=== PATIENT | female | born 1975 | race Caucasian/White ===

== ENCOUNTER → 2017-12-07 15:51 | Outpatient (CLI) | payer BC, SELFPAY ==
--- NOTE | 2017-12-07 15:55 | HPBI_ITS ---
MAMMOGRAPHY - BILATERAL SCREENING REASON FOR EXAM: Female, 42 years old. Routine annual screening examination. PERTINENT HISTORY: Non-contributory. TECHNIQUE: Digital bilateral breast jenny (3D mammographic acquisition) in the CC and MLO projections. 2-D mediolateral oblique (MLO) and craniocaudad (CC) views of both breasts were obtained. CAD: Full Field Digital Mammography with Computer Added Detection was performed. COMPARISON: Comparison is made with prior study dated November 24, 2016 and July 30, 2015. FINDINGS: Breast Composition: The breasts are heterogeneously dense, which may obscure small masses. There are no dominant masses or suspicious calcifications. No other significant abnormalities are identified. There has been no significant change since the prior study. HPBI/SCREENING MAMM (CAD), BILAT IMPRESSION: Stable bilateral screening mammogram. Yearly follow-up mammogram recommended. (A) ASSESSMENT CATEGORY: BIRADS Category 1: Negative. A letter regarding these results will be sent to the patient by the facility within 30 days. Approximately 10% of breast cancers are not detected by mammography. A normal mammogram should not delay biopsy of a clinically suspicious abnormality. [id number] Electronically Signed: Shemar Pike MD at 7:56 EST Tel [phone], Service support ,
== END ==
PROVIDERS: Family Provider Family Medicine; PCP Family Medicine; Visit Provider Obstetrics & Gynecology
DX: Z12.31 Encounter for screening mammogram for malignant neoplasm of breast (principal)
CPT/HCPCS: 77063; 77067

== ENCOUNTER → 2018-12-27 14:41 | Outpatient (CLI) | payer BC, SELFPAY ==
--- NOTE | 2018-12-27 14:44 | BI_ITS ---
MAMMOGRAPHY - BILATERAL SCREENING 3-D PRANAV SYNTHESIS REASON FOR EXAM: Female, 43 years old. Bilateral Screening 3-D tomosynthesis PERTINENT HISTORY: No significant family history. TECHNIQUE: 2-D mammograms and 3-D Pranav synthesis of the breast (s) were performed. CAD was performed. COMPARISON: December 07, 2017, November 24, 2016 FINDINGS: The breast composition is heterogeneously dense that can obscure small breast masses. Scattered benign calcifications are seen. No dense spiculated masses or suspicious microcalcifications are identified. No architectural distortion is identified. There is no skin thickening or retraction. There has been no significant change since the prior study. BI/SCREENING MAMM (CAD), BILAT IMPRESSION: No mammographic signs of malignancy. Routine yearly mammograms recommended. ASSESSMENT CATEGORY: BIRADS Category 2: Benign. A letter regarding these results will be sent to the patient by the facility within 30 days. FOLLOW UP RECOMMENDATION: Yearly follow up mammogram recommended. (A) Approximately 10% of breast cancers are not detected by mammography. A normal mammogram should not delay biopsy of a clinically suspicious abnormality. Electronically Signed: Landon Reynolds MD at 13:53 EDT , Service support ,
== END ==
PROVIDERS: Family Provider Family Medicine; PCP Family Medicine; Referring Provider Obstetrics & Gynecology; Visit Provider Obstetrics & Gynecology
DX: Z12.31 Encounter for screening mammogram for malignant neoplasm of breast (principal)
CPT/HCPCS: 77063; 77067

== ENCOUNTER → 2020-08-29 12:40 | Outpatient (CLI) | payer BC, SELFPAY ==
--- NOTE | 2020-08-29 12:42 | BI_ITS ---
MAMMOGRAPHY - BILATERAL SCREENING REASON FOR EXAM: Female, 45 years old. Routine annual screening examination. PERTINENT HISTORY: Aunt with breast cancer. TECHNIQUE: Digital bilateral breast pranav (3D mammographic acquisition) in the CC and MLO projections. 2-D mediolateral oblique (MLO) and craniocaudad (CC) views of both breasts were obtained. CAD: Full Field Digital Mammography with Computer Added Detection was performed. COMPARISON: Comparison is made with prior study dated 12/27/2018 and 12/07/2017. FINDINGS: Breast Composition: The breasts are extremely dense, which lowers the sensitivity of mammography. There are no dominant masses or suspicious calcifications. No other significant abnormalities are identified. There has been no significant change since the prior study. BI/SCREEN MAMM (CAD) W/PRANAV BILAT IMPRESSION: Stable bilateral screening mammogram. Yearly follow-up mammogram recommended. (A) ASSESSMENT CATEGORY: BIRADS Category 1: Negative. A letter regarding these results will be sent to the patient by the facility within 30 days. Approximately 10% of breast cancers are not detected by mammography. A normal mammogram should not delay biopsy of a clinically suspicious abnormality. [id number] Electronically Signed: Shemar Pike, at 13:49 EST , Service support ,
== END ==
PROVIDERS: PCP Family Medicine; Referring Provider Student in an Organized Health Care Education/Training Program; Visit Provider Student in an Organized Health Care Education/Training Program
DX: Z12.31 Encounter for screening mammogram for malignant neoplasm of breast (principal)
CPT/HCPCS: 77063; 77067

== ENCOUNTER → 2020-09-25 | Outpatient (CLI) | payer BC, SELFPAY ==
[2020-09-27 18:22] LABS: HPV Reflexed? NOT INDICATED
== END | disposition home or self-care (01) ==
LOC: LABSPEC 13:20
PROVIDERS: PCP Family Medicine; Visit Provider Student in an Organized Health Care Education/Training Program
DX: Z12.4 Encounter for screening for malignant neoplasm of cervix (principal)
CPT/HCPCS: 88175; G0145

== ENCOUNTER → 2021-10-10 10:14 | Outpatient (CLI) | payer BC, SELFPAY ==
--- NOTE | 2021-10-10 10:16 | BI_ITS ---
MAMMOGRAPHY - BILATERAL SCREENING 3-D TOMOSYNTHESIS REASON FOR EXAM: Female, 46 years old. SCREENING PERTINENT HISTORY: No significant family history. TECHNIQUE: 2-D mammograms and 3-D Tomosynthesis of the breast (s) were performed. CAD was performed. COMPARISON: 08/29/2020 FINDINGS: The breast composition is heterogeneously dense that can obscure small breast masses. Scattered benign calcifications are seen. No dense spiculated masses or suspicious microcalcifications are identified. No architectural distortion is identified. There is no skin thickening or retraction. There has been no significant change since the prior study. BI/SCRN MAMM (CAD)W/PRANAV BILAT IMPRESSION: No mammographic signs of malignancy. Routine yearly mammograms recommended. ASSESSMENT CATEGORY: BIRADS Category 1: Negative. A letter regarding these results will be sent to the patient by the facility within 30 days. FOLLOW UP RECOMMENDATION: Yearly follow up mammogram recommended. (A) Approximately 10% of breast cancers are not detected by mammography. A normal mammogram should not delay biopsy of a clinically suspicious abnormality. Electronically Signed: Kem Blunt MD at 11:34 EST Tel , Service support ,
== END ==
PROVIDERS: PCP Family Medicine; Referring Provider Student in an Organized Health Care Education/Training Program; Visit Provider Student in an Organized Health Care Education/Training Program
DX: Z12.31 Encounter for screening mammogram for malignant neoplasm of breast (principal)
CPT/HCPCS: 77063; 77067

== ENCOUNTER → 2022-12-12 | Outpatient (CLI) | payer BC, SELFPAY ==
[2022-12-18 17:19] LABS: HPV APTIMA, High Risk Negative (Negative)
== END | disposition home or self-care (01) ==
LOC: LABSPEC 10:30
PROVIDERS: PCP Family Medicine; Visit Provider Student in an Organized Health Care Education/Training Program
DX: Z12.4 Encounter for screening for malignant neoplasm of cervix (principal)
CPT/HCPCS: 87624; 88175; G0145

== ENCOUNTER → 2022-12-23 | Outpatient (CLI) | payer BC, SELFPAY ==
--- NOTE | 2022-12-23 | EMB_PTH ---
PATIENT: VIMAL SHIELDS LOC: [facility] U#:[id number] AGE/SX: 47/F ROOM: RE12/23/[address]: Dr. Aleisha Webber DO : 1975 BED: DIS: 12/23/2022 SPEC #: [id number] RECD: 12/23/22 13:23 STATUS: MARICHUY REQ #: [id number] LUCIANO: 12/23/22 00:[address]: Aleisha Webber DEPT: SURGICAL PATHOLOGY RECD BY: Bairon Esparza ENTERED: 12/23/22 13:23 SP TYPE: ENDOM BX/C NED DR: Dr. Truong Rowell DO Tissues: Endometrium, NOS Procedures: Surgery Specimen Level IV HEADER OPERATION: Endometrial biopsy PRE-OP DIAGNOSIS: Abnormal uterine bleeding N93.9 TISSUE SUBMITTED: Endometrial biopsy MICROSCOPIC DIAGNOSIS Endometrial biopsy: Secretory endometrium. SJ:eamon 12/24/2022 MICROSCOPIC DESCRIPTION Slides are reviewed. GROSS DESCRIPTION Received in fixative is one container labeled with the patient's name and designated endometrial biopsy. The specimen consists of multiple irregular fragments of sanchez soft tissue that in aggregate measure 2.5 x 1.5 x 0.2 cm. The specimen is totally submitted in one cassette. / SJ:eamon 12/24/2022 TC:4 CPT: 36438
[2022-12-23 13:29] LABS: LDH 150 U/L (84-246)
[2022-12-25 15:33] LABS: AFP, Tumor Marker < 1.8 ng/mL (0.0-6.4); Cancer Antigen 125 12.3 U/mL (0.0-38.1); Carcinoembryonic Antigen 2139 0.7 ng/mL (0.0-4.7)
== END | disposition home or self-care (01) ==
LOC: WOBLAB 12:08
PROVIDERS: PCP Family Medicine; Visit Provider Student in an Organized Health Care Education/Training Program
DX: N83.292 Other ovarian cyst, left side (principal)
CPT/HCPCS: 36415; 82105; 82378; 83615; 86304; 88305

== ENCOUNTER → 2022-12-25 | Outpatient (CLI) | payer BC, SELFPAY ==
--- NOTE | 2022-12-25 12:05 | BI_ITS ---
MAMMOGRAPHY - BILATERAL SCREENING 3-D TOMOSYNTHESIS REASON FOR EXAM: Female, 47 years old. Routine screening PERTINENT HISTORY: Aunt with breast cancer.. TECHNIQUE: 2-D mammograms and 3-D Tomosynthesis of the breast (s) were performed. CAD was performed. COMPARISON: 10/10/2021 FINDINGS: The breast composition is heterogeneously dense that can obscure small breast masses. Scattered benign calcifications are seen. No dense spiculated masses or suspicious microcalcifications are identified. No architectural distortion is identified. There is no skin thickening or retraction. There has been no significant change since the prior study. BI/SCRN MAMM (CAD)W/PRANAV BILAT IMPRESSION: No mammographic signs of malignancy. Routine yearly mammograms recommended. ASSESSMENT CATEGORY: BIRADS Category 2: Benign. A letter regarding these results will be sent to the patient by the facility within 30 days. FOLLOW UP RECOMMENDATION: Yearly follow up mammogram recommended. (A) Approximately 10% of breast cancers are not detected by mammography. A normal mammogram should not delay biopsy of a clinically suspicious abnormality. Electronically Signed: Tray Loredo MD at 12:51 EDT ,
== END | disposition home or self-care (01) ==
LOC: OPBI 12:04
PROVIDERS: PCP Family Medicine; Referring Provider Student in an Organized Health Care Education/Training Program; Visit Provider Student in an Organized Health Care Education/Training Program
DX: Z12.31 Encounter for screening mammogram for malignant neoplasm of breast (principal)
CPT/HCPCS: 77063; 77067

== ENCOUNTER 2023-02-05 08:25 | Day surgery (SDC) | payer BC, SELFPAY ==
[2023-02-02 13:58] LABS: Hematocrit 40.3 % (37-47); Hemoglobin 12.7 g/dL (12.0-15.0); Mean Corp Hgb Conc 31.5 g/dL (32-36); Mean Corpuscular Hgb 30.1 pg (27.0-32.0); Mean Corpuscular Volume 95.5 fL (81-99); Mean Platelet Vol. 9.1 fl (6.2-12.0); Platelet Count 269 K/mm3 (150-450); RBC Distribution Width CV 14.3 % (11.6-14.6); RBC Distribution Width SD 49.8 fl (35.1-43.9); Red Blood Count 4.22 M/mm3 (4.2-5.4); White Blood Count 6.3 K/mm3 (4.4-11.0)
[2023-02-02 14:17] LABS: Partial Thromboplast Time 27.7 Seconds (24.1-36.2)
[2023-02-02 14:35] LABS: AST(SGOT) 14 U/L (15-37); Alanine Aminotransfer ALT/SGPT 16 U/L (13-56); Albumin, Serum 3.9 g/dL (3.2-5.0); Alkaline Phosphatase 82 U/L (45-117); Bilirubin, Direct 0.18 mg/dL (0.00-0.30); Protein, Total 7.9 g/dL (6.4-8.2)
[2023-02-05] VITALS (8 sets, daily range): BP systolic 96–119; BP diastolic 44–98; PULSE 64–102; RESP 16–18; TEMP 36–37.2; O2SAT 97–100; BMI 21.2
--- NOTE | 2023-02-05 07:13 | PCM.HP.BLA ---
History and Physical Date of Admission: 02/05/23 HPI: 47-year-old female plan for hysteroscopy, dilation and curettage, endometrial ablation, laparoscopic bilateral salpingectomy, possible left ovarian cystectomy, possible left oophorectomy for abnormal uterine bleeding, desires sterilization, left ovarian cyst. Denies headache or vision changes, chest pain or shortness of breath, nausea or vomiting, fevers or chills, diarrhea or constipation. FLATBED OWNER OPERATOR history: G3, P3 Medical history: 1. Depression 2. Arthritis Surgical history: 1. section Medications: 1. Celexa 2. Vitamin D 3. Singulair Allergies: Codeine, PCN Family history: Denies Social history: Denies tobacco, alcohol, drug use Review of system: Negative otherwise stated above Physical exam: Vitals pending General: No acute distress HEENT: Normocephalic/atraumatic, PERRLA Cardiac: Regular rate and rhythm Respiratory clear to auscultation bilaterally Abdomen: Soft, nontender, nondistended Extremities: No edema Neurologic: Cranial nerves II through XII grossly intact, no focal deficits Musculoskeletal: Strength out of 5 throughout extremities. Assessment/plan: 47-year-old female plan for hysteroscopy, dilation and curettage, endometrial ablation, laparoscopic bilateral salpingectomy, possible left ovarian cystectomy, possible left oophorectomy for abnormal uterine bleeding, sterilization, left ovarian cyst. All risk, benefits, alternatives discussed with patient.? Risk include but are not limited to: Risk of bleeding plan transfusion, infection, injury to surrounding tissue including bowel/bladder/major abdominal vessels, VTE, ICU admission.? Patient aware and consented
[2023-02-05 08:53] LABS: Internal QC Validated? YES +Cl - CLEAR BKGD; Pregnancy, Urine Negative Negative
[2023-02-05] MEDS: Lactated Ringers 1,000 ML 15 ML IV ×2 (09:04→11:01)
--- NOTE | 2023-02-05 10:00 | EMB_PTH ---
PATIENT: VIMAL SHIELDS LOC: [facility] [place] U#:[id number] AGE/SX: 47/F ROOM: RE02/05/[address]: Dr. Aleisha Webber DO : 1975 BED: DIS: 02/05/2023 SPEC #: [id number] RECD: 02/05/23 15:26 STATUS: MARICHUY REEddy #: [id number] LUCIANO: 02/05/23 10:[address]: Aleisha Webber DEPT: SURGICAL PATHOLOGY RECD BY: Maida Colón ENTERED: 02/06/23 08:54 SP TYPE: ENDOM BX/C NED DR: Dr. Truong Rowell DO Tissues: A - Endometrium, NOS B - Fallopian tube Procedures: Surgery Specimen Level II Surgery Specimen Level IV HEADER OPERATION: Hysteroscopy, D & C, Rose ablation, bilateral laparoscopic salpingectomy PRE-OP DIAGNOSIS: Abnormal uterine bleeding, sterilization, left ovarian cyst TISSUE SUBMITTED: A ? Endometrial curettings, B ? Bilateral fallopian tubes, left paratubal cyst MICROSCOPIC DIAGNOSIS A. Endometrial curettings: Proliferative endometrium. B. Bilateral fallopian tubes and paratubal cyst, salpingectomy and paratubal cystectomy: One fallopian tube with mild focal mild chronic inflammation. Second fallopian tube - no pathologic diagnosis. 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 SJ:rg 02/09/2023 COMMENT Case has been reviewed in consultation with Dr. Tobias who concurs with the above diagnosis. IDC:AM MICROSCOPIC DESCRIPTION Slides are reviewed. GROSS DESCRIPTION A - Received in fixative is one container labeled with the patient's name and designated endometrial curettings. The specimen consists of multiple fragments of hemorrhagic soft tissue mixed with mucoid tissue that in aggregate measure 1.5 x 0.5 x 0.1 cm. The specimen is totally submitted in one cassette. B - Received in fixative is one container labeled with the patient's name and designated bilateral fallopian tubes, left paratubal cyst. The specimen consists of bilateral fallopian tubes including fimbrial ends. One fallopian tube measures 4.5 cm in length and 0.7 cm in diameter. The second fallopian tube received in two pieces measures 4.5 cm in length and 0.7 cm in diameter. Also present in the container is a detached cyst measuring 1.5 x 1.0 x 0.6 cm. The fallopian tubes are not identified as right or left. Sections reveal unremarkable cut surfaces. Acoustic Intelligence Specialist sections are submitted in three cassettes as follows: 1 - fallopian tube received in two pieces, 2 - fallopian tube received intact, 3 - detached cyst, entirely submitted. / SOLO:eamon 02/06/2023 TC:1 CPT: 59165 x3, 14374
--- NOTE | 2023-02-05 10:15 | PCM.OPRPT ---
Report of Operation Date of Procedure: 02/05/23 Pre-Operative Diagnosis: Abnormal uterine bleeding, desires permanent sterilization, left ovarian cyst Post-Operative Diagnosis: Abnormal uterine bleeding, desires permanent sterilization, left paratubal cyst Surgery/Procedure Performed:: Hysteroscopy, dilation curettage, endometrial ablation, laparoscopic bilateral salpingectomy Description of Surgical Findings:: Normal-appearing external genitalia. Normal-appearing endometrial cavity. Normal-appearing bilateral ovaries. Small left paratubal cyst. Filshie clip on the right fallopian tube. No left Filshie clip was noted on the tube or in the pelvis. Normal-appearing fallopian tubes. Large amount of stool in the colon. Surgeon: Aleisha Webber structural steel erection supervisor: Rogelio Tsai Type of Anesthesia: General Estimated Blood Loss (mL): 10 cc Fluids Replaced: 1000cc Description of Procedure: Indication/risk/benefits: 47-year-old female plan for hysteroscopy, dilation and curettage, endometrial ablation, laparoscopic bilateral salpingectomy, possible left ovarian cystectomy, possible left oophorectomy for abnormal uterine bleeding, sterilization, left ovarian cyst. All risk, benefits, alternatives discussed with patient.? Risk include but are not limited to: Risk of bleeding plan transfusion, infection, injury to surrounding tissue including bowel/bladder/major abdominal vessels, VTE, ICU admission.? Patient aware and consented Procedure: Patient taken the operating room and placed under general anesthesia. Patient placed in the dorsal lithotomy position prepped and draped in usual sterile fashion. Duenas catheter placed. Weighted speculum placed posterior vagina tractor used to visualize cervix. Cervix grasped with single-tooth tenaculum. Cervix sequentially dilated. Hysteroscope placed through the cervical canal and inspection of the endometrial cavity was completed with findings above. Curettings completed in 360 degree manner. Cavity length 4 cm. Rose device open. Device placed, cavity assessments passed. Ablation completed. Rose device removed. Sargis manipulator placed and single-tooth tenaculum and weighted speculum removed. Gloves were changed and attention turned to the anterior abdominal wall. Infraumbilical incision made with scalpel and trocar placed under direct visualization. Right and left lower quadrant trocars placed under direct visualization after abdomen was insufflated. Findings of pelvis noted above. Left fallopian tube grasped at the fimbriated end and removed along the mesosalpinx using LigaSure device. Fallopian tube was removed into pieces due to prior necrosis from the Filshie clip and separation of the fallopian tube where it had previously been. Left paratubal cyst excised using LigaSure device. Fallopian tube and paratubal cyst removed through trocar. Right fallopian tube grasped at the fimbriated end and removed along the mesosalpinx using LigaSure device. Filshie clip grasped and dissected using LigaSure device. Filshie clip removed. Both removed through the trocar. Pelvis inspected for left Filshie clip, unable to see. Mesosalpinx hemostatic. Abdomen desufflated and trocars removed. Skin closed with subcuticular stitch and skin glue. Sargis manipulator removed and hemostasis of the cervix confirmed. Duenas catheter removed. At the end of the procedure all needle, lap, sponge counts were correct. UOP: 60cc clear urine Complications None Admit VTE Documentation VTE Mechan Device Prophylaxis: SCD's
--- NOTE | 2023-02-05 10:16 | PCM.DC ---
Discharge Instructions Diet Discharge Diet: No restrictions Activity Discharge Activity: Return to Normal Activity and May Shower May resume sexual activity in: 2 weeks Weight Bearing Status: Weight bearing as tolerated Lifting Restrictions: No greater than 15 pounds Dressing / Incision Call your doctor if your incision/area has: Continuous Slow Oozing, Increased Pain/ Swelling, Increased Redness and Foul Smelling Discharge Call your doctor if you observe: Fever of 101 or Higher, Inability to urinate, Using more than 1 pad per hour, Shortness of breath, Chest pain, Calf discomfort and Uncontrolled pain Cleanse incision/area with: Soap & Water and Keep Dressing Clean & Dry Follow Up Care Please Follow Up With: Aleisha Webber DO When: 2 weeks post operative visit. Test Results: Test results from this visit will be discussed in further detail at your follow-up appointment, if applicable. Discharge Plan Admission Primary Reason for Your Visit: Ablation, tubal ligation Attending Provider: Aleisha Webber Primary Care Provider: Truong Rowell Discharge Orders/Prescriptions Prescriptions: New oxycodone 5 mg tablet 5 mg PO Q6H PRN (Reason: pain (scale score 7-10)) 3 Days Qty: 10 0RF Continued citalopram [Celexa] 20 mg Tablet 20 mg PO DAILY ibuprofen 400 mg Tablet 400 mg PO Q6H PRN (Reason: Pain) montelukast [Singulair] 10 mg Tablet 10 mg PO DAILY Referrals / Follow Up: Truong Rowell DO [Primary Care Provider] - Disposition Disposition (needs filled in before D/C Order can be placed): Home, Self Care
== END 2023-02-05 13:59 | disposition home or self-care (01) ==
LOC: SDC 08:25 → AC 08:27
PROVIDERS: Anesthesiology; PCP Family Medicine; Referring Provider Student in an Organized Health Care Education/Training Program; Visit Provider Student in an Organized Health Care Education/Training Program
PROC: 0U5B8ZZ Destruction of Endometrium, Via Natural or Artificial Opening Endoscopic (ICD-10-PCS; CPT 58558; principal; 2023-02-05 09:45)
DX: Z30.2 Encounter for sterilization (principal); N93.9 Abnormal uterine and vaginal bleeding, unspecified; Z90.722 Acquired absence of ovaries, bilateral; D36.7 Benign neoplasm of other specified sites; F41.9 Anxiety disorder, unspecified; Z87.19 Personal history of other diseases of the digestive system
CPT/HCPCS: 58661; 58563; 36415; 80076; 81025; 85027; 85610; 85730; 86850; 86900; 86901; 88302; 88305; J7120; J2405

== ENCOUNTER → 2024-01-05 | Outpatient (CLI) | payer BC, SELFPAY ==
[2024-01-05 09:35] LABS: Absolute Lymphocyte Count 1.04 X10^3/uL (0.83-4.51); Basophil# 0.04 X10^3/uL; Basophil% 0.9 % (0-1); Eosinophil# 0.11 X10^3/uL; Eosinophils% 2.4 % (0-5); Hematocrit 37.6 % (37-47); Hemoglobin 12.1 g/dL (12.0-15.0); Lymphocyte # 1.04 X10^3/ul (0.83-4.51); Lymphocyte % 22.5 % (19-41); Mean Corp Hgb Conc 32.2 g/dL (32-36); Mean Corpuscular Volume 96.4 fL (81-99); Mean Platelet Vol. 9.3 fl (6.2-12.0); Monocyte% 8.6 % (0-10); NRBC Flagged by Analyzer 0 % (0-5); Neutrophil # 3.04 X10^3/uL (2.7-7.7); Neutrophil % 65.6 % (47-70); Platelet Count 269 K/mm3 (150-450); RBC Distribution Width SD 49.7 fl (35.1-43.9); White Blood Count 4.6 K/mm3 (4.4-11.0)
[2024-01-05 09:58] LABS: Vitamin D,25 Hydroxy 49.2 ng/mL
[2024-01-05 10:14] LABS: ALB/GLOB Ratio 0.9 RATIO (0.9-2.4); AST(SGOT) 12 U/L (15-37); Alanine Aminotransfer ALT/SGPT 17 U/L (13-56); Albumin, Serum 3.3 g/dL (3.2-5.0); Alkaline Phosphatase 68 U/L (45-117); Anion Gap 8 (5-15); BUN 7 mg/dL (7-18); BUN/Creat Ratio 8.8 RATIO (10-20); Calcium,Total 8.6 mg/dL (8.5-10.1); Chloride 106 mmol/L (98-107); Cholesterol 151 mg/dL (200); EST Glomerular Filtration Rate 81 mL/min (>60); Est Glom Filt Rate - Afr Amer 98 mL/min (>60); Globulin 3.5 g/dL (2.2-4.2); Glucose 85 mg/dL (74-106); High Density Lipoprotein 55 mg/dL; Potassium 3.6 mmol/L (3.5-5.1); Protein, Total 6.8 g/dL (6.4-8.2); Sodium Level 139 mmol/L (136-145); Thyroid Stim Hormone (TSH) 1.61 uIU/mL (0.358-3.74); Triglycerides 83 mg/dL; Very Low Density Lipoprotein 17 mg/dL (5-40)
== END | disposition home or self-care (01) ==
LOC: LAB 08:41
PROVIDERS: PCP Family Medicine; Referring Provider Family Medicine; Visit Provider Family Medicine
DX: Z00.00 Encounter for general adult medical examination without abnormal findings (principal); E55.9 Vitamin D deficiency, unspecified; Z13.29 Encounter for screening for other suspected endocrine disorder; Z13.220 Encounter for screening for lipoid disorders
CPT/HCPCS: 36415; 80053; 80061; 82306; 84443; 85025

== ENCOUNTER → 2024-03-24 | Outpatient (CLI) | payer BC, SELFPAY ==
--- NOTE | 2024-03-24 14:01 | BI_ITS ---
MAMMOGRAPHY - BILATERAL SCREENING REASON FOR EXAM: Female, 48 years old. Routine annual screening examination. PERTINENT HISTORY: Aunt with breast cancer. TECHNIQUE: Digital bilateral breast pranav (3D mammographic acquisition) in the CC and MLO projections. 2-D mediolateral oblique (MLO) and craniocaudad (CC) views of both breasts were obtained. CAD: Full Field Digital Mammography with Computer Added Detection was performed. COMPARISON: Comparison is made with prior study dated December 25, 2022 and October 10, 2021. FINDINGS: Breast Composition: The breasts are extremely dense, which lowers the sensitivity of mammography. There are no dominant masses or suspicious calcifications. No other significant abnormalities are identified. There has been no significant change since the prior study. BI/SCRN MAMM (CAD)W/PRANAV BILAT IMPRESSION: Stable bilateral screening mammogram. Yearly follow-up mammogram recommended. (A) ASSESSMENT CATEGORY: BIRADS Category 1: Negative. A letter regarding these results will be sent to the patient by the facility within 30 days. Approximately 10% of breast cancers are not detected by mammography. A normal mammogram should not delay biopsy of a clinically suspicious abnormality. [id number] Electronically Signed: Shemar Pike MD at 14:57 EDT ,
== END | disposition home or self-care (01) ==
LOC: OPBI 14:00
PROVIDERS: PCP Family Medicine; Referring Provider Obstetrics & Gynecology; Visit Provider Obstetrics & Gynecology
DX: Z12.31 Encounter for screening mammogram for malignant neoplasm of breast (principal)
CPT/HCPCS: 77063; 77067